=== PATIENT | male | born 1990 | race Caucasian/White ===

== ENCOUNTER 2016-09-21 15:46 | Emergency (ER) | payer OTHER ==
[~2016-09-21 15:46] MED LIST: BENTYL20 M1 PO; FLEXERIL10 MG PO; NO MEDICATIONS; PHENERGAN25 M1 PO; PHENERGAN25 MG PO; PRILOSEC20 MG PO; ULTRAM PO
== END 2016-09-21 15:51 | disposition left against medical advice (07) ==
LOC: SED 15:46
DX: S16.1XXA Strain of muscle, fascia and tendon at neck level, initial encounter (principal); S39.012A Strain of muscle, fascia and tendon of lower back, initial encounter; S66.912A Strain of unspecified muscle, fascia and tendon at wrist and hand level, left hand, initial encounter; S00.83XA Contusion of other part of head, initial encounter; V43.62XA Car passenger injured in collision with other type car in traffic accident, initial encounter
CPT/HCPCS: 99283

== ENCOUNTER 2017-01-17 19:13 | Emergency (ER) | payer OTHER ==
--- NOTE | ~2017-01-17 | CR72 ---
[facility] A Service of [facility] & [facility] RADIOLOGY TEXT RESULTS PATIENT: CHIN ELLISON LOCATION: [facility] : [birth year] UNIT #: [id number] AGE: [address]: Alen Glass MD SEX: M ORDER DR: [id number] [facility] [address] [place], [place] [address] [id number] MR#: [id number] Acc #: [id number] NAME: CHIN ELLISON : 1990 SEX: M STUDY DATE/TIME: 01/17/2017 19:51 UNIT: [facility] ROOM: STUDY DESCRIPTION: CR Chest Single View Portable Attending Physician: Alen Glass M.D. Ordering Physician: Rivera Ferrer D.O. Primary Care Physician: No Primary Care Physician MEDICAL IMAGING REPORT This report is preliminary unless electronic signature is present EXAM Portable chest HISTORY Shortness of air today. Drug overdose. FINDINGS The cardiac size and pulmonary vascularity are normal. No infiltrates or effusions. Mild right thoracic curve. IMPRESSION No acute findings. Lungs are clear. Dictated by... Wilver Moreira M.D. THIS IS AN ELECTRONICALLY VERIFIED REPORT Wilver Moreira M.D. at 01/18/2017 6:24 PM DFL/ernesto TD: 01/18/2017 02:01 JOB #: [id number] MEDICAL IMAGING REPORT Page 1 of 1 COPY
[2017-01-18 04:17] LABS: AMPHETAMINE POS (NEG); BARBITURATES NEG (NEG); BENZODIAZEPINES NEG (NEG); COCAINE NEG (NEG); MARIJUANA POS (NEG); OPIATES NEG (NEG); TRICYCLIC ANTIDEPRESSANTS NEG (NEG); U METHADONE NEG (NEG)
== END 2017-01-18 05:05 | disposition home or self-care (01) ==
LOC: CED 19:13
PROVIDERS: Emergency Medicine
DX: F10.129 Alcohol abuse with intoxication, unspecified (principal); Y90.7 Blood alcohol level of 200-239 mg/100 ml; F15.10 Other stimulant abuse, uncomplicated; F12.10 Cannabis abuse, uncomplicated; F17.200 Nicotine dependence, unspecified, uncomplicated
CPT/HCPCS: 36415; 71010; 80307; 96360; 96361; 99284; G0480

== ENCOUNTER 2017-01-18 07:33 | Emergency (ER) | payer OTHER | END 2017-01-18 07:47 | disposition home or self-care (01) | LOC: SED 07:33 | DX: F19.10 Other psychoactive substance abuse, uncomplicated (principal); F17.210 Nicotine dependence, cigarettes, uncomplicated | CPT/HCPCS: 99283 ==